=== PATIENT | female | born 1960 | race Caucasian/White ===

== ENCOUNTER 2019-05-09 09:07 | Outpatient (CLI) | payer BC ==
--- NOTE | 2019-05-09 10:52 | BD ---
DEXA BONE DENSITY STUDY: Date: 05/09/19 HISTORY: Postmenopausal screening. FINDINGS/IMPRESSION: Lumbar Spine: BMD (g/cm2) L1 0.925 T-Score: -0.6 L2 1.008 T-Score: -0.2 L3 1.021 T-Score: -0.6 L4 0.944 T-Score: -1.1 L1-L4 0.975 T-Score: -0.7 Within normal limits with no increased risk for fracture. Left Hip: Femoral Neck: 0.726 T-Score: -1.1 Total Femur: 0.971 T-Score: +0.2 Evidence for osteopenia with increased risk for fracture. POS: [facility]
--- NOTE | 2019-05-09 15:28 | MMO ---
Bilateral MAMMO Bilat Screen [facility]. CLINICAL HISTORY: Patient is 59 years old and is seen for screening. The patient has the following family history of breast cancer: maternal grandmother. The patient has no personal history of cancer. The patient has a history of left Excisional Biopsy in December, - Fibroadenoma. VIEWS: The views performed were: bilateral craniocaudal with tomosynthesis and bilateral mediolateral oblique with tomosynthesis. FILMS COMPARED: The present examination has been compared to prior imaging studies performed at [facility] on 09/18/2004, 01/25/2007, 10/09/2008 and 05/14/2013. MAMMOGRAM FINDINGS: There are scattered fibroglandular densities. There are no suspicious masses, suspicious calcifications, or new areas of architectural distortion. IMPRESSION: THERE IS NO MAMMOGRAPHIC EVIDENCE OF MALIGNANCY. A ROUTINE FOLLOW-UP MAMMOGRAM IN 1 YEAR IS RECOMMENDED. THE RESULTS OF THIS EXAM WERE SENT TO THE PATIENT. ACR BI-RADS Category 1 - Negative MAMMOGRAPHY NOTE: 1. A negative mammogram report should not delay a biopsy if a dominant of clinically suspicious mass is present. 2. Approximately 10% to 15% of breast cancers are not detected by mammography. 3. Adenosis and dense breasts may obscure an underlying neoplasm. Reported by: ROSELINE PALOMARES MD Electonically Signed: [id number]
== END 2019-05-09 09:08 | disposition home or self-care (01) ==
LOC: BICMAMMO 09:07
PROVIDERS: ATTEND Family Medicine
DX: Z12.31 Encounter for screening mammogram for malignant neoplasm of breast (principal); Z78.0 Asymptomatic menopausal state; Z80.3 Family history of malignant neoplasm of breast; M85.859 Other specified disorders of bone density and structure, unspecified thigh
CPT/HCPCS: 77063; 77067; 77080

== ENCOUNTER 2021-04-21 09:29 | Outpatient (CLI) | payer BC | END 2021-04-21 09:30 | disposition home or self-care (01) | LOC: BICMAMMO 09:29 | PROVIDERS: ATTEND Physician Assistant | DX: Z12.31 Encounter for screening mammogram for malignant neoplasm of breast (principal); Z80.3 Family history of malignant neoplasm of breast | CPT/HCPCS: 77063; 77067 ==

== ENCOUNTER 2021-07-23 22:53 | Inpatient (IN) | payer BC ==
[2021-07-23 23:44] LABS: #Lymphocytes 1.6 thou/uL (1.20-3.40); #Monocytes 0.4 thou/uL (0.11-0.59); #Neutrophils 4.8 thou/uL (1.40-6.50); %Eosinophils 0.2 % (0.0-10.0); %Lymphocytes 23.7 % (21.0-51.0); %Monocytes 5.2 % (0.0-10.0); %Neutrophils 70.9 % (42.0-75.0); Hemoglobin 13.8 g/dL (12.0-16.0); Mean Corpuscular HGB CONC 32.1 g/dL (32.0-36.0); Mean Corpuscular Hemoglobin 31.4 pg (27.0-31.0); Mean Corpuscular Volume 97.8 fL (78.0-98.0); Mean Platelet Volume 9.5 fL (7.4-10.4); Platelet Count 188 thou/uL (130-400); Red Blood Cell (RBC) Count 4.41 mill/uL (4.20-5.40); White Blood Cell (WBC) Count 6.8 thou/uL (4.8-10.8)
[2021-07-24 00:05] LABS: ALT (SGPT) 63 U/L (8-55); AST (SGOT) 85 U/L (5-34); Albumin 3.3 g/dL (3.4-4.8); Alkaline Phosphatase 70 U/L (40-110); Anion Gap 17 mmol/L (10-20); BUN (Urea Nitrogen) 17 mg/dL (9.8-20.1); Bilirubin, Total 0.7 mg/dL (0.2-1.2); Calc. Creatinine Clearance 0 mL/min (70-130); Carbon Dioxide 22 mmol/L (23-31); Chloride 100 mmol/L (98-107); Globulin 2.9 g/dL (2.4-3.5); Glucose 131 mg/dL (80-115); Potassium 3.1 mmol/L (3.5-5.1); Protein, Total 6.2 g/dL (5.8-8.1); Sodium 136 mmol/L (136-145)
[2021-07-24] MEDS ORDERED: Dexamethasone 10 MG/ML VIAL ONE (02:03)
[2021-07-24] MEDS ORDERED: HYDROcodone/Acetaminophen 7.5/325 mg Tablet PO PRN (02:10)
[2021-07-24] MEDS ORDERED: Senokot S 8.6-50 MG TAB PO PRN (02:10)
[2021-07-24] MEDS ORDERED: Guaifenesin DM 100-10/5 ML UDCUP PO PRN (02:10)
[2021-07-24] MEDS ORDERED: Ondansetron PF 4 MG/2 ML Vial IVP PRN (02:10)
[2021-07-24] MEDS ORDERED: HYDROcodone/Acetaminophen 5/325 mg Tablet PO PRN (02:10)
[2021-07-24] MEDS ORDERED: Pharmacy to Dose REMDESIVIR IVPB PRN (02:14)
[2021-07-24] MEDS ORDERED: Melatonin 3 MG TAB PO PRN (02:15)
[2021-07-24] MEDS ORDERED: Enoxaparin Sodium 40 MG/0.4 ML SYRINGE SC SCH (02:15)
[2021-07-24] MEDS ORDERED: Benzonatate 100 MG CAP PO PRN (02:18)
[2021-07-24] MEDS ORDERED: Albuterol Sulfate 1.25 MG/3 ML NEB INH PRN (02:18)
[2021-07-24] MEDS ORDERED: Potassium Chloride 20 MEQ TAB PO SCH (03:45)
[2021-07-24 03:48] VITALS: BMI 38.9
[2021-07-24] MEDS: Acetaminophen 325 MG TAB PO PRN (05:16)
[2021-07-24 07:15] LABS: #Lymphocytes 1.3 thou/uL (1.20-3.40); #Monocytes 0.3 thou/uL (0.11-0.59); #Neutrophils 4.6 thou/uL (1.40-6.50); %Basophils 0.2 % (0.0-1.0); %Eosinophils 0.4 % (0.0-10.0); %Monocytes 4.1 % (0.0-10.0); %Neutrophils 74.3 % (42.0-75.0); Mean Corpuscular HGB CONC 32.1 g/dL (32.0-36.0); Mean Corpuscular Hemoglobin 31.5 pg (27.0-31.0); Mean Platelet Volume 9.9 fL (7.4-10.4); Platelet Count 198 thou/uL (130-400); RBC Distribution Width 12.2 % (11.5-14.5); Red Blood Cell (RBC) Count 4.44 mill/uL (4.20-5.40); White Blood Cell (WBC) Count 6.2 thou/uL (4.8-10.8)
[2021-07-24 07:39] LABS: Hemoglobin A1c 5.3 % (4.0-6.0)
[2021-07-24] MEDS: Zinc Sulfate 220 MG CAP PO SCH (07:54)
[2021-07-24] MEDS: Cholecalciferol (Vitamin D3) 400 UNITS TAB PO SCH (07:54)
[2021-07-24] MEDS: Dexamethasone 10 MG/ML VIAL SLOW IVP SCH ×2 (07:54→21:16)
[2021-07-24] MEDS: Famotidine 20 MG TAB PO SCH ×2 (07:54→21:16)
[2021-07-24] MEDS: Ascorbic Acid 500 mg Chewable Tablet PO SCH (07:54)
[2021-07-24] MEDS: Triamcinolone 0.1% Cream 15 GM TUBE TOP SCH ×2 (08:02→21:17)
[2021-07-24 08:50] LABS: ALT (SGPT) 67 U/L (8-55); AST (SGOT) 85 U/L (5-34); Albumin 3.4 g/dL (3.4-4.8); Alkaline Phosphatase 67 U/L (40-110); Anion Gap 13 mmol/L (10-20); BUN (Urea Nitrogen) 15 mg/dL (9.8-20.1); Bilirubin, Total 0.7 mg/dL (0.2-1.2); Calc. Creatinine Clearance 127 mL/min (70-130); Calcium 8.5 mg/dL (7.8-10.44); Carbon Dioxide 29 mmol/L (23-31); Chloride 99 mmol/L (98-107); Glucose 141 mg/dL (80-115); Potassium 4.7 mmol/L (3.5-5.1); Protein, Total 6.4 g/dL (5.8-8.1); Sodium 136 mmol/L (136-145)
[2021-07-24] MEDS ORDERED: REMDESIVIR 200 MG in Sodium Chloride 0.9% 250 ML 210 ML IV SCH (09:00)
[2021-07-24] MEDS ORDERED: Iopamidol-370 76% 500 ML 1 ML ONE (10:39)
[2021-07-24] MEDS: Enoxaparin Sodium 40 MG/0.4 ML SYRINGE SC SCH (21:16)
[2021-07-25] MEDS: Dexamethasone 10 MG/ML VIAL SLOW IVP SCH ×2 (08:30→20:57)
[2021-07-25] MEDS: Triamcinolone 0.1% Cream 15 GM TUBE TOP SCH ×2 (08:30→20:58)
[2021-07-25] MEDS: Cholecalciferol (Vitamin D3) 400 UNITS TAB PO SCH (08:30)
[2021-07-25] MEDS: Famotidine 20 MG TAB PO SCH ×2 (08:30→20:57)
[2021-07-25] MEDS: Zinc Sulfate 220 MG CAP PO SCH (08:30)
[2021-07-25] MEDS: Ascorbic Acid 500 mg Chewable Tablet PO SCH (08:30)
[2021-07-25] MEDS: REMDESIVIR 100 MG in Sodium Chloride 0.9% 250 ML 230 ML IV SCH (08:37)
[2021-07-25] MEDS: Acetaminophen 325 MG TAB PO PRN ×2 (10:32→20:58)
[2021-07-25 11:14] LABS: #Lymphocytes 1.3 thou/uL (1.20-3.40); #Monocytes 0.6 thou/uL (0.11-0.59); #Neutrophils 7.8 thou/uL (1.40-6.50); %Basophils 0.1 % (0.0-1.0); %Lymphocytes 13.4 % (21.0-51.0); %Monocytes 5.8 % (0.0-10.0); %Neutrophils 80.6 % (42.0-75.0); Hemoglobin 13.8 g/dL (12.0-16.0); Mean Corpuscular HGB CONC 33.7 g/dL (32.0-36.0); Mean Corpuscular Hemoglobin 32.8 pg (27.0-31.0); Mean Corpuscular Volume 97.5 fL (78.0-98.0); Mean Platelet Volume 9.4 fL (7.4-10.4); Platelet Count 246 thou/uL (130-400); RBC Distribution Width 11.9 % (11.5-14.5); White Blood Cell (WBC) Count 9.6 thou/uL (4.8-10.8)
[2021-07-25 11:37] LABS: ALT (SGPT) 63 U/L (8-55); AST (SGOT) 60 U/L (5-34); Albumin 3.2 g/dL (3.4-4.8); Alkaline Phosphatase 65 U/L (40-110); Anion Gap 14 mmol/L (10-20); BUN (Urea Nitrogen) 17 mg/dL (9.8-20.1); Bilirubin, Total 0.5 mg/dL (0.2-1.2); CRP (Inflammatory) 4.55 mg/dL (= or < 0.5); Calc. Creatinine Clearance 135 mL/min (70-130); Calcium 8.4 mg/dL (7.8-10.44); Carbon Dioxide 25 mmol/L (23-31); Chloride 101 mmol/L (98-107); Globulin 2.8 g/dL (2.4-3.5); Glucose 156 mg/dL (80-115); Potassium 3.5 mmol/L (3.5-5.1); Sodium 136 mmol/L (136-145)
[2021-07-25] MEDS: Enoxaparin Sodium 40 MG/0.4 ML SYRINGE SC SCH (20:57)
[2021-07-26 07:27] LABS: #Lymphocytes 1.4 thou/uL (1.20-3.40); #Monocytes 0.5 thou/uL (0.11-0.59); #Neutrophils 8.7 thou/uL (1.40-6.50); %Basophils 0.2 % (0.0-1.0); %Eosinophils 0.1 % (0.0-10.0); %Lymphocytes 13.1 % (21.0-51.0); %Monocytes 4.3 % (0.0-10.0); %Neutrophils 82.3 % (42.0-75.0); Hemoglobin 13.2 g/dL (12.0-16.0); Mean Corpuscular HGB CONC 31.6 g/dL (32.0-36.0); Mean Corpuscular Hemoglobin 31.4 pg (27.0-31.0); Mean Corpuscular Volume 99.3 fL (78.0-98.0); Mean Platelet Volume 9.8 fL (7.4-10.4); Platelet Count 276 thou/uL (130-400); RBC Distribution Width 11.9 % (11.5-14.5); Red Blood Cell (RBC) Count 4.21 mill/uL (4.20-5.40); White Blood Cell (WBC) Count 10.5 thou/uL (4.8-10.8)
[2021-07-26 07:39] LABS: ALT (SGPT) 63 U/L (8-55); AST (SGOT) 63 U/L (5-34); Albumin 2.9 g/dL (3.4-4.8); Alkaline Phosphatase 66 U/L (40-110); Anion Gap 13 mmol/L (10-20); BUN (Urea Nitrogen) 21 mg/dL (9.8-20.1); Bilirubin, Total 0.5 mg/dL (0.2-1.2); CRP (Inflammatory) 2.38 mg/dL (= or < 0.5); Calc. Creatinine Clearance 133 mL/min (70-130); Calcium 8.1 mg/dL (7.8-10.44); Carbon Dioxide 27 mmol/L (23-31); Chloride 103 mmol/L (98-107); Globulin 3.3 g/dL (2.4-3.5); Glucose 134 mg/dL (80-115); Potassium 4.6 mmol/L (3.5-5.1); Protein, Total 6.2 g/dL (5.8-8.1); Sodium 138 mmol/L (136-145)
[2021-07-26] MEDS: Dexamethasone 10 MG/ML VIAL SLOW IVP SCH ×2 (08:38→21:22)
[2021-07-26] MEDS: REMDESIVIR 100 MG in Sodium Chloride 0.9% 250 ML 230 ML IV SCH (08:38)
[2021-07-26] MEDS: Cholecalciferol (Vitamin D3) 400 UNITS TAB PO SCH (08:38)
[2021-07-26] MEDS: Ascorbic Acid 500 mg Chewable Tablet PO SCH (08:38)
[2021-07-26] MEDS: Zinc Sulfate 220 MG CAP PO SCH (08:38)
[2021-07-26] MEDS: Famotidine 20 MG TAB PO SCH ×2 (08:38→21:22)
[2021-07-26] MEDS: Triamcinolone 0.1% Cream 15 GM TUBE TOP SCH ×2 (08:39→21:22)
[2021-07-26] MEDS: Acetaminophen 325 MG TAB PO PRN ×2 (08:52→21:24)
[2021-07-26] MEDS: Enoxaparin Sodium 40 MG/0.4 ML SYRINGE SC SCH (21:22)
[2021-07-27 06:54] LABS: #Lymphocytes 1.5 thou/uL (1.20-3.40); #Monocytes 0.6 thou/uL (0.11-0.59); %Basophils 0.2 % (0.0-1.0); %Eosinophils 0.1 % (0.0-10.0); %Lymphocytes 12.6 % (21.0-51.0); %Neutrophils 82.1 % (42.0-75.0); Hemoglobin 13.8 g/dL (12.0-16.0); Mean Corpuscular HGB CONC 34.3 g/dL (32.0-36.0); Mean Corpuscular Hemoglobin 33.5 pg (27.0-31.0); Mean Corpuscular Volume 97.6 fL (78.0-98.0); Mean Platelet Volume 9.4 fL (7.4-10.4); Platelet Count 302 thou/uL (130-400); RBC Distribution Width 11.8 % (11.5-14.5); Red Blood Cell (RBC) Count 4.11 mill/uL (4.20-5.40); White Blood Cell (WBC) Count 12.2 thou/uL (4.8-10.8)
[2021-07-27 07:16] LABS: ALT (SGPT) 71 U/L (8-55); AST (SGOT) 56 U/L (5-34); Albumin 3.1 g/dL (3.4-4.8); Alkaline Phosphatase 70 U/L (40-110); Anion Gap 10 mmol/L (10-20); BUN (Urea Nitrogen) 20 mg/dL (9.8-20.1); Bilirubin, Total 0.7 mg/dL (0.2-1.2); CRP (Inflammatory) 1.37 mg/dL (= or < 0.5); Calc. Creatinine Clearance 141 mL/min (70-130); Calcium 8.4 mg/dL (7.8-10.44); Carbon Dioxide 27 mmol/L (23-31); Chloride 104 mmol/L (98-107); Globulin 2.6 g/dL (2.4-3.5); Glucose 141 mg/dL (80-115); Potassium 3.8 mmol/L (3.5-5.1); Protein, Total 5.7 g/dL (5.8-8.1); Sodium 137 mmol/L (136-145)
[2021-07-27] MEDS ORDERED: Dexamethasone 4 MG TAB PO SCH (08:15)
[2021-07-27] MEDS: Cholecalciferol (Vitamin D3) 400 UNITS TAB PO SCH (08:58)
[2021-07-27] MEDS: Famotidine 20 MG TAB PO SCH ×2 (08:58→20:29)
[2021-07-27] MEDS: REMDESIVIR 100 MG in Sodium Chloride 0.9% 250 ML 230 ML IV SCH (08:59)
[2021-07-27] MEDS: Ascorbic Acid 500 mg Chewable Tablet PO SCH (08:59)
[2021-07-27] MEDS: Acetaminophen 325 MG TAB PO PRN ×2 (09:11→20:29)
[2021-07-27] MEDS: Zinc Sulfate 220 MG CAP PO SCH (09:14)
[2021-07-27] MEDS: Triamcinolone 0.1% Cream 15 GM TUBE TOP SCH ×2 (09:15→20:29)
[2021-07-27] MEDS: Dexamethasone 4 MG TAB PO SCH (18:26)
[2021-07-27] MEDS: Enoxaparin Sodium 40 MG/0.4 ML SYRINGE SC SCH (20:29)
[2021-07-28 08:25] VITALS: BP 159/80; TEMP 98
[2021-07-28] MEDS: Dexamethasone 4 MG TAB PO SCH (08:49)
[2021-07-28] MEDS: Zinc Sulfate 220 MG CAP PO SCH (08:49)
[2021-07-28] MEDS: Ascorbic Acid 500 mg Chewable Tablet PO SCH (08:49)
[2021-07-28] MEDS: Cholecalciferol (Vitamin D3) 400 UNITS TAB PO SCH (08:49)
[2021-07-28] MEDS: Famotidine 20 MG TAB PO SCH (08:49)
[2021-07-28] MEDS: Triamcinolone 0.1% Cream 15 GM TUBE TOP SCH (08:53)
[2021-07-28] MEDS: REMDESIVIR 100 MG in Sodium Chloride 0.9% 250 ML 230 ML IV SCH (09:33)
[2021-07-28] MEDS: Acetaminophen 325 MG TAB PO PRN (09:35)
== END 2021-07-28 14:10 | disposition home or self-care (01) | DRG 177 ==
LOC: ERS 22:53 → T4-A 07-24 00:47
PROVIDERS: ADMIT Internal Medicine; ATTEND Internal Medicine
PROC: XW033E5 Introduction of Remdesivir Anti-infective into Peripheral Vein, Percutaneous Approach, New Technology Group 5 (ICD-10-PCS; principal; 2021-07-24)
PROC: 3E0333Z Introduction of Anti-inflammatory into Peripheral Vein, Percutaneous Approach (ICD-10-PCS; 2021-07-24)
PROC: 8E0ZXY6 Isolation (ICD-10-PCS; 2021-07-24)
DX: U07.1 COVID-19 (principal); J12.82 Pneumonia due to coronavirus disease 2019; J96.01 Acute respiratory failure with hypoxia; A08.39 Other viral enteritis; K21.9 Gastro-esophageal reflux disease without esophagitis; E87.6 Hypokalemia; R74.01 Elevation of levels of liver transaminase levels; Z90.710 Acquired absence of both cervix and uterus; Z90.49 Acquired absence of other specified parts of digestive tract; Z87.891 Personal history of nicotine dependence; Z88.0 Allergy status to penicillin; Z79.899 Other long term (current) drug therapy
CPT/HCPCS: 36415; 36416; 71045; 71275; 80053; 82728; 83036; 83880; 84484; 85025; 85379; 86140; 93005; 96374; J1100; J1650; J7050; J8540; Q9967

== ENCOUNTER 2021-10-27 13:21 | Inpatient (IN) | payer BC, OTHER, SELFPAY ==
[2021-10-27 13:53] LABS: Actual Bicarbonate (HCO3a) 21.3 mEq/L (22-28); Analyzer IN Cardio ER; Base Excess (BEa) -5.5 mEq/L (-2.0 to +3.0); CO2 Tension 46.1 mmHg (35.0-45.0); Calcium, Ionized (arterial) 1.15 mmol/L (1.12-1.30); Carboxyhemoglobin (COHb) 1.3 gm% (0.0-3.0); Hemoglobin (Hb) 16.1 g/dL (12.0-16.0); O2 Tension (PaO2), arterial 63.5 mmHg (> 80.0); Potassium - ABG Lab 3.11 mmol/L (3.70-5.30); pH, Arterial 7.28 (7.35-7.45)
[2021-10-27 13:56] LABS: ALV-art Gradient 591.875 mmHg (0-20); Puncture Site RRA
[2021-10-27 14:01] LABS: Hemoglobin 16.1 g/dL (12.0-16.0); Mean Corpuscular HGB CONC 32.7 g/dL (32.0-36.0); Mean Corpuscular Hemoglobin 31.9 pg (27.0-31.0); Mean Corpuscular Volume 97.5 fL (78.0-98.0); Mean Platelet Volume 10.2 fL (7.4-10.4); Platelet Count 257 thou/uL (130-400); Red Blood Cell (RBC) Count 5.04 mill/uL (4.20-5.40); White Blood Cell (WBC) Count 13.5 thou/uL (4.8-10.8)
[2021-10-27 14:16] LABS: Band 43 % (5-11); Dohle Bodies SLIGHT; Lymphocytes 8 % (21-51); MDiff Complete? YES; Metamyelocyte 6 % (0-0); Monocytes 3 % (0-10); Neutrophil 39 % (42-75); Platelet Morphology Comment Appears Adequate; RBC Morphology Normal; Reflex for Review?? YES; Toxic Granulation SLIGHT; Vacuoles SLIGHT
[2021-10-27 14:26] LABS: ALT (SGPT) 22 U/L (8-55); AST (SGOT) 68 U/L (5-34); Albumin 3.3 g/dL (3.4-4.8); Alkaline Phosphatase 69 U/L (40-110); Anion Gap 21 mmol/L (10-20); BUN (Urea Nitrogen) 56 mg/dL (9.8-20.1); Bilirubin, Total 1.3 mg/dL (0.2-1.2); Calc. Creatinine Clearance 0 mL/min (70-130); Calcium 9.8 mg/dL (7.8-10.44); Carbon Dioxide 20 mmol/L (23-31); Chloride 95 mmol/L (98-107); Globulin 3.8 g/dL (2.4-3.5); Glucose 97 mg/dL (80-115); Lipase 5 U/L (8-78); Potassium 3.1 mmol/L (3.5-5.1); Protein, Total 7.1 g/dL (5.8-8.1); Sodium 133 mmol/L (136-145)
[2021-10-27 14:48] LABS: CKMB 1.3 ng/mL (0-6.6)
[2021-10-27 15:13] LABS: SARS-CoV-2 NAA Rapid Test Not Detected (NotDetected)
[2021-10-27] MEDS ORDERED: Potassium Chloride 20 MEQ TAB ONE (15:13)
[2021-10-27] MEDS ORDERED: Magnesium 2 GM/50 ML BAG (IN WATER) ONE (15:13)
[2021-10-27] MEDS ORDERED: Piperacillin/Tazobactam 3.375 GM VIAL ONE (15:13)
[2021-10-27] MEDS ORDERED: Vancomycin 1 GM/200 ML BAG ONE (15:13)
[2021-10-27] MEDS ORDERED: Aspirin Chewable 81 MG TAB ONE (15:35)
[2021-10-27] MEDS ORDERED: Acetaminophen 650 MG Suppository PR PRN (16:20)
[2021-10-27] MEDS ORDERED: Ondansetron PF 4 MG/2 ML Vial IVP PRN (16:20)
[2021-10-27] MEDS ORDERED: Acetaminophen 325 MG TAB PO PRN (16:20)
[2021-10-27] MEDS ORDERED: Lactated Ringer's 1,000 ML IV SCH (16:30)
[2021-10-27 17:15] LABS: Lactic Acid 2.7 mmol/L (0.5-2.2)
[2021-10-27] MEDS: Dexamethasone 10 MG/ML VIAL SLOW IVP SCH (20:28)
[2021-10-27] MEDS: Famotidine/PF 20 mg/2ml Vial SLOW IVP SCH (20:28)
[2021-10-27] MEDS: cefTRIAXone\\ROCEPHIN 2 GM in Sodium Chloride 0.9% 100 ML IVPB SCH (20:29)
[2021-10-27] MEDS ORDERED: Dexamethasone 10 MG in Sodium Chloride 0.9% 50 ML IVPB SCH (21:00)
[2021-10-27] MEDS ORDERED: Heparin 5,000 UNITS/ML VIAL SC SCH (21:00)
[2021-10-28 04:13] LABS: Anion Gap 17 mmol/L (10-20); BUN (Urea Nitrogen) 62 mg/dL (9.8-20.1); Calc. Creatinine Clearance 32 mL/min (70-130); Calcium 8.9 mg/dL (7.8-10.44); Carbon Dioxide 20 mmol/L (23-31); Chloride 101 mmol/L (98-107); Glucose 98 mg/dL (80-115); Potassium 3.9 mmol/L (3.5-5.1); Sodium 134 mmol/L (136-145)
[2021-10-28 04:16] LABS: Band 77 % (5-11); Hemoglobin 14.3 g/dL (12.0-16.0); Lymphocytes 9 % (21-51); MDiff Complete? YES; Mean Corpuscular HGB CONC 35.2 g/dL (32.0-36.0); Mean Corpuscular Hemoglobin 34.5 pg (27.0-31.0); Mean Platelet Volume 10.1 fL (7.4-10.4); Monocytes 2 % (0-10); Myelocyte 3 % (0-0); Neutrophil 9 % (42-75); Platelet Count 183 thou/uL (130-400); Platelet Morphology Comment Appears Adequate; RBC Distribution Width 12.1 % (11.5-14.5); RBC Morphology Normal; Red Blood Cell (RBC) Count 4.16 mill/uL (4.20-5.40); Vacuoles SLIGHT; White Blood Cell (WBC) Count 11.5 thou/uL (4.8-10.8)
[2021-10-28 05:05] LABS: SARS-CoV-2 NAA Rapid Test DETECTED (NotDetected)
[2021-10-28] MEDS: Azithromycin 500 MG in Sodium Chloride 0.9% 250 ML 250 ML IVPB SCH (05:07)
[2021-10-28] MEDS ORDERED: Diltiazem HCl 125 MG, Admixture Fee 1 EACH in Sodium Chloride 0.9% 100 ML IVPB SCH (06:45)
[2021-10-28] MEDS: Dexamethasone 10 MG/ML VIAL SLOW IVP SCH ×2 (08:22→21:06)
[2021-10-28] MEDS: Enoxaparin Sodium 100 MG/ML SYRINGE SC SCH (08:23)
[2021-10-28] MEDS ORDERED: Metoprolol Tartrate 5 MG/5 ML VIAL IVP SCH (08:45)
[2021-10-28] MEDS ORDERED: Vancomycin HCl 1 GM in Sodium Chloride 0.9% 250 ML 250 ML IVPB SCH (09:00)
[2021-10-28] MEDS: Amiodarone 450 MG in Dextrose 5% in Water 250 ML IVPB SCH ×2 (09:17→16:10)
[2021-10-28 09:19] LABS: Vancomycin, Random 10.3 ug/mL (See Comment)
[2021-10-28 09:20] LABS: Magnesium 2.8 mg/dL (1.6-2.6)
[2021-10-28] MEDS ORDERED: Pharmacy to Dose BARICITINIB IVPB PRN (12:09)
[2021-10-28] MEDS ORDERED: BARICITINIB 1 MG TAB PO SCH (12:30)
[2021-10-28 15:50] LABS: Vancomycin, Random 8.9 ug/mL (See Comment)
[2021-10-28] MEDS ORDERED: Vancomycin HCl 750 MG in Sodium Chloride 0.9% 250 ML 250 ML IVPB SCH (17:00)
[2021-10-28] MEDS: cefTRIAXone\\ROCEPHIN 2 GM in Sodium Chloride 0.9% 100 ML IVPB SCH (21:06)
[2021-10-28] MEDS: Famotidine/PF 20 mg/2ml Vial SLOW IVP SCH (21:06)
[2021-10-29] MEDS: Azithromycin 500 MG in Sodium Chloride 0.9% 250 ML 250 ML IVPB SCH (06:07)
[2021-10-29] MEDS: Amiodarone 450 MG in Dextrose 5% in Water 250 ML IVPB SCH ×2 (06:07→16:08)
[2021-10-29 07:53] LABS: Hemoglobin 12.8 g/dL (12.0-16.0); Mean Corpuscular HGB CONC 33.4 g/dL (32.0-36.0); Mean Corpuscular Hemoglobin 33.1 pg (27.0-31.0); Mean Platelet Volume 10.1 fL (7.4-10.4); Platelet Count 216 thou/uL (130-400); RBC Distribution Width 12.4 % (11.5-14.5); Red Blood Cell (RBC) Count 3.87 mill/uL (4.20-5.40); White Blood Cell (WBC) Count 16.8 thou/uL (4.8-10.8)
[2021-10-29 08:08] LABS: Anion Gap 14 mmol/L (10-20); BUN (Urea Nitrogen) 75 mg/dL (9.8-20.1); Calc. Creatinine Clearance 36 mL/min (70-130); Carbon Dioxide 25 mmol/L (23-31); Chloride 101 mmol/L (98-107); Glucose 114 mg/dL (80-115); Potassium 3.7 mmol/L (3.5-5.1); Sodium 136 mmol/L (136-145)
[2021-10-29 08:11] LABS: Band 39 % (5-11); Lymphocytes 4 % (21-51); MDiff Complete? YES; Metamyelocyte 1 % (0-0); Neutrophil 56 % (42-75); Platelet Morphology Comment Appears Adequate; Polychromasia SLIGHT = 2-3 cells (100X) (0-2/hpf); Toxic Granulation SLIGHT; Vacuoles MARKED
[2021-10-29] MEDS: Dexamethasone 10 MG/ML VIAL SLOW IVP SCH ×2 (08:24→20:15)
[2021-10-29] MEDS: Enoxaparin Sodium 100 MG/ML SYRINGE SC SCH (08:25)
[2021-10-29] MEDS ORDERED: BARICITINIB 1 MG TAB PO SCH (09:00)
[2021-10-29] MEDS ORDERED: Vancomycin HCl 750 MG in Sodium Chloride 0.9% 250 ML 250 ML IVPB SCH ×2 (11:00→16:45)
[2021-10-29 15:14] LABS: Vancomycin, Random 12.4 ug/mL (See Comment)
[2021-10-29] MEDS: Albuterol 200 PUFF (6.7GM INHALER) INH SCH (19:38)
[2021-10-29] MEDS: Famotidine/PF 20 mg/2ml Vial SLOW IVP SCH (20:15)
[2021-10-29] MEDS: cefTRIAXone\\ROCEPHIN 2 GM in Sodium Chloride 0.9% 100 ML IVPB SCH (20:25)
[2021-10-29] MEDS: Benzonatate 100 MG CAP PO PRN (22:01)
[2021-10-30] MEDS: Albuterol 200 PUFF (6.7GM INHALER) INH SCH ×4 (00:08→20:02)
[2021-10-30 08:36] LABS: Anion Gap 13 mmol/L (10-20); BUN (Urea Nitrogen) 74 mg/dL (9.8-20.1); Calc. Creatinine Clearance 46 mL/min (70-130); Calcium 9.7 mg/dL (7.8-10.44); Carbon Dioxide 24 mmol/L (23-31); Chloride 106 mmol/L (98-107); Glucose 123 mg/dL (80-115); Potassium 3.6 mmol/L (3.5-5.1); Sodium 139 mmol/L (136-145)
[2021-10-30 08:40] LABS: Band 18 % (5-11); Hemoglobin 13.9 g/dL (12.0-16.0); Lymphocytes 7 % (21-51); MDiff Complete? YES; Mean Corpuscular HGB CONC 33.9 g/dL (32.0-36.0); Mean Corpuscular Volume 97.4 fL (78.0-98.0); Mean Platelet Volume 10.1 fL (7.4-10.4); Neutrophil 75 % (42-75); Platelet Count 230 thou/uL (130-400); RBC Distribution Width 12.5 % (11.5-14.5); Red Blood Cell (RBC) Count 4.22 mill/uL (4.20-5.40); Toxic Granulation SLIGHT; White Blood Cell (WBC) Count 25.5 thou/uL (4.8-10.8)
[2021-10-30] MEDS: Dexamethasone 10 MG/ML VIAL SLOW IVP SCH ×2 (09:25→20:01)
[2021-10-30] MEDS: Enoxaparin Sodium 100 MG/ML SYRINGE SC SCH (09:25)
[2021-10-30] MEDS: Amiodarone 450 MG in Dextrose 5% in Water 250 ML IVPB SCH (11:55)
[2021-10-30] MEDS ORDERED: Amiodarone 200 MG TAB PO SCH (14:15)
[2021-10-30] MEDS ORDERED: Enoxaparin Sodium 100 MG/ML SYRINGE SC SCH (16:37)
[2021-10-30] MEDS ORDERED: Enoxaparin Sodium 60 MG/0.6 ML SYRINGE SC SCH (18:45)
[2021-10-30] MEDS: Amiodarone 200 MG TAB PO SCH (20:01)
[2021-10-30] MEDS: Famotidine/PF 20 mg/2ml Vial SLOW IVP SCH (20:01)
[2021-10-30] MEDS: cefTRIAXone\\ROCEPHIN 2 GM in Sodium Chloride 0.9% 100 ML IVPB SCH (20:02)
[2021-10-30] MEDS: Benzonatate 100 MG CAP PO PRN (20:02)
[2021-10-31] MEDS: Albuterol 200 PUFF (6.7GM INHALER) INH SCH ×4 (01:34→22:36)
[2021-10-31 04:06] LABS: Magnesium 2.7 mg/dL (1.6-2.6)
[2021-10-31] MEDS: Enoxaparin Sodium 60 MG/0.6 ML SYRINGE SC SCH (08:03)
[2021-10-31] MEDS: Dexamethasone 10 MG/ML VIAL SLOW IVP SCH ×2 (08:03→22:35)
[2021-10-31] MEDS: Amiodarone 200 MG TAB PO SCH ×2 (08:03→22:35)
[2021-10-31] MEDS: Benzonatate 100 MG CAP PO PRN (08:46)
[2021-10-31] MEDS ORDERED: Lorazepam 2 MG/ML VIAL SLOW IVP PRN (09:50)
[2021-10-31] MEDS ORDERED: Lorazepam 0.5 MG TAB PO PRN (09:50)
[2021-10-31 10:18] LABS: Anion Gap 17 mmol/L (10-20); BUN (Urea Nitrogen) 70 mg/dL (9.8-20.1); Calc. Creatinine Clearance 54 mL/min (70-130); Carbon Dioxide 19 mmol/L (23-31); Chloride 107 mmol/L (98-107); Glucose 110 mg/dL (80-115); Potassium 3.6 mmol/L (3.5-5.1); Sodium 139 mmol/L (136-145)
[2021-10-31 11:02] LABS: Band 7 % (5-11); Hemoglobin 15.4 g/dL (12.0-16.0); Lymphocytes 10 % (21-51); MDiff Complete? YES; Mean Corpuscular HGB CONC 32.9 g/dL (32.0-36.0); Mean Corpuscular Hemoglobin 31.7 pg (27.0-31.0); Mean Corpuscular Volume 96.2 fL (78.0-98.0); Mean Platelet Volume 9.9 fL (7.4-10.4); Neutrophil 83 % (42-75); Platelet Count 207 thou/uL (130-400); RBC Distribution Width 12.6 % (11.5-14.5); Red Blood Cell (RBC) Count 4.86 mill/uL (4.20-5.40); White Blood Cell (WBC) Count 30.8 thou/uL (4.8-10.8)
[2021-10-31] MEDS ORDERED: Labetalol HCl 100 MG/20 ML VIAL SLOW IVP PRN (17:24)
[2021-10-31] MEDS ORDERED: hydrALAZINE 25 MG TAB PO PRN (17:24)
[2021-10-31] MEDS: cefTRIAXone\\ROCEPHIN 2 GM in Sodium Chloride 0.9% 100 ML IVPB SCH (22:35)
[2021-10-31] MEDS: Famotidine/PF 20 mg/2ml Vial SLOW IVP SCH (22:35)
[2021-11-01] MEDS: Albuterol 200 PUFF (6.7GM INHALER) INH SCH ×4 (01:54→19:54)
[2021-11-01] MEDS: Amiodarone 200 MG TAB PO SCH ×2 (07:56→20:13)
[2021-11-01] MEDS: Enoxaparin Sodium 60 MG/0.6 ML SYRINGE SC SCH (07:56)
[2021-11-01] MEDS: Zinc Sulfate 220 MG CAP PO SCH (07:56)
[2021-11-01] MEDS: Dexamethasone 10 MG/ML VIAL SLOW IVP SCH ×2 (07:57→20:14)
[2021-11-01] MEDS: Saccharomyces boulardii 250 MG CAP PO SCH (07:57)
[2021-11-01] MEDS: Ascorbic Acid 500 mg Chewable Tablet PO SCH (07:57)
[2021-11-01 08:04] LABS: Anion Gap 11 mmol/L (10-20); BUN (Urea Nitrogen) 62 mg/dL (9.8-20.1); Calc. Creatinine Clearance 63 mL/min (70-130); Calcium 9.4 mg/dL (7.8-10.44); Carbon Dioxide 22 mmol/L (23-31); Chloride 111 mmol/L (98-107); Glucose 119 mg/dL (80-115); Sodium 140 mmol/L (136-145)
[2021-11-01] MEDS ORDERED: Labetalol HCl 100 MG/20 ML VIAL SLOW IVP PRN (08:43)
[2021-11-01] MEDS ORDERED: Amlodipine 5 MG TAB PO SCH (10:00)
[2021-11-01] MEDS: Cholecalciferol (Vitamin D3) 400 UNITS TAB PO SCH (10:28)
[2021-11-01 11:38] LABS: Band 8 % (5-11); Hemoglobin 13.9 g/dL (12.0-16.0); Lymphocytes 8 % (21-51); MDiff Complete? YES; Mean Corpuscular HGB CONC 33.4 g/dL (32.0-36.0); Mean Corpuscular Hemoglobin 32.4 pg (27.0-31.0); Mean Corpuscular Volume 96.9 fL (78.0-98.0); Mean Platelet Volume 9.6 fL (7.4-10.4); Metamyelocyte 1 % (0-0); Neutrophil 83 % (42-75); Platelet Count 274 thou/uL (130-400); RBC Distribution Width 12.3 % (11.5-14.5); White Blood Cell (WBC) Count 28.6 thou/uL (4.8-10.8)
[2021-11-01] MEDS: Famotidine/PF 20 mg/2ml Vial SLOW IVP SCH (20:13)
[2021-11-01] MEDS: cefTRIAXone\\ROCEPHIN 2 GM in Sodium Chloride 0.9% 100 ML IVPB SCH (20:14)
[2021-11-02] MEDS: Albuterol 200 PUFF (6.7GM INHALER) INH SCH ×4 (03:08→19:20)
[2021-11-02 03:59] LABS: Anion Gap 12 mmol/L (10-20); BUN (Urea Nitrogen) 55 mg/dL (9.8-20.1); Calc. Creatinine Clearance 67 mL/min (70-130); Calcium 8.9 mg/dL (7.8-10.44); Carbon Dioxide 25 mmol/L (23-31); Chloride 108 mmol/L (98-107); Glucose 131 mg/dL (80-115); Potassium 4.1 mmol/L (3.5-5.1); Sodium 141 mmol/L (136-145)
[2021-11-02 06:23] LABS: Hemoglobin 13.3 g/dL (12.0-16.0); Mean Corpuscular HGB CONC 33.6 g/dL (32.0-36.0); Mean Corpuscular Hemoglobin 32.5 pg (27.0-31.0); Mean Corpuscular Volume 96.7 fL (78.0-98.0); Mean Platelet Volume 9.5 fL (7.4-10.4); Platelet Count 274 thou/uL (130-400); RBC Distribution Width 12.3 % (11.5-14.5); White Blood Cell (WBC) Count 18.6 thou/uL (4.8-10.8)
[2021-11-02 06:37] LABS: Band 10 % (5-11); Lymphocytes 14 % (21-51); MDiff Complete? YES; Monocytes 2 % (0-10); Neutrophil 74 % (42-75); Nucleated RBC 1 % (0)
[2021-11-02] MEDS ORDERED: Loperamide HCl 2 MG CAP PO PRN (07:32)
[2021-11-02] MEDS: Amlodipine 5 MG TAB PO SCH (08:56)
[2021-11-02] MEDS: Amiodarone 200 MG TAB PO SCH ×2 (08:56→20:19)
[2021-11-02] MEDS: Ascorbic Acid 500 mg Chewable Tablet PO SCH (08:56)
[2021-11-02] MEDS: Saccharomyces boulardii 250 MG CAP PO SCH (08:57)
[2021-11-02] MEDS: Enoxaparin Sodium 60 MG/0.6 ML SYRINGE SC SCH (08:57)
[2021-11-02] MEDS: Dexamethasone 10 MG/ML VIAL SLOW IVP SCH (08:57)
[2021-11-02] MEDS: Cholecalciferol (Vitamin D3) 400 UNITS TAB PO SCH (08:57)
[2021-11-02] MEDS: Zinc Sulfate 220 MG CAP PO SCH (08:57)
[2021-11-02] MEDS: Famotidine/PF 20 mg/2ml Vial SLOW IVP SCH (20:16)
[2021-11-02] MEDS: cefTRIAXone\\ROCEPHIN 2 GM in Sodium Chloride 0.9% 100 ML IVPB SCH (20:19)
[2021-11-02] MEDS: Famotidine 20 MG TAB PO SCH (20:19)
[2021-11-03] MEDS: Albuterol 200 PUFF (6.7GM INHALER) INH SCH ×4 (00:32→19:01)
[2021-11-03 03:50] LABS: Band 5 % (5-11); Hemoglobin 13.3 g/dL (12.0-16.0); Lymphocytes 12 % (21-51); MDiff Complete? YES; Mean Corpuscular HGB CONC 34.3 g/dL (32.0-36.0); Mean Corpuscular Hemoglobin 33.2 pg (27.0-31.0); Mean Corpuscular Volume 96.7 fL (78.0-98.0); Mean Platelet Volume 9.2 fL (7.4-10.4); Monocytes 7 % (0-10); Neutrophil 76 % (42-75); Platelet Count 273 thou/uL (130-400); Platelet Morphology Comment Appears Adequate; RBC Distribution Width 12.2 % (11.5-14.5); RBC Morphology Normal; Red Blood Cell (RBC) Count 4.01 mill/uL (4.20-5.40); White Blood Cell (WBC) Count 14.5 thou/uL (4.8-10.8)
[2021-11-03 03:54] LABS: Anion Gap 11 mmol/L (10-20); BUN (Urea Nitrogen) 45 mg/dL (9.8-20.1); Calc. Creatinine Clearance 77 mL/min (70-130); Calcium 8.6 mg/dL (7.8-10.44); Carbon Dioxide 25 mmol/L (23-31); Chloride 108 mmol/L (98-107); Glucose 96 mg/dL (80-115); Potassium 3.8 mmol/L (3.5-5.1); Sodium 140 mmol/L (136-145)
[2021-11-03] MEDS: Amlodipine 5 MG TAB PO SCH (07:40)
[2021-11-03] MEDS: Zinc Sulfate 220 MG CAP PO SCH (07:40)
[2021-11-03] MEDS: Benzonatate 100 MG CAP PO PRN (07:41)
[2021-11-03] MEDS: Saccharomyces boulardii 250 MG CAP PO SCH (07:41)
[2021-11-03] MEDS: Ascorbic Acid 500 mg Chewable Tablet PO SCH (07:41)
[2021-11-03] MEDS: Amiodarone 200 MG TAB PO SCH ×2 (07:41→22:37)
[2021-11-03] MEDS: Enoxaparin Sodium 60 MG/0.6 ML SYRINGE SC SCH (07:41)
[2021-11-03] MEDS: Dexamethasone 10 MG/ML VIAL SLOW IVP SCH (07:41)
[2021-11-03] MEDS: Cholecalciferol (Vitamin D3) 400 UNITS TAB PO SCH (07:41)
[2021-11-03] MEDS: Famotidine 20 MG TAB PO SCH ×2 (07:44→22:37)
[2021-11-03] MEDS: cefTRIAXone\\ROCEPHIN 2 GM in Sodium Chloride 0.9% 100 ML IVPB SCH (22:37)
[2021-11-03] MEDS: Apixaban 5 MG TAB PO SCH (22:37)
[2021-11-04] MEDS: Albuterol 200 PUFF (6.7GM INHALER) INH SCH ×4 (02:34→18:20)
[2021-11-04] MEDS: Amlodipine 5 MG TAB PO SCH (09:05)
[2021-11-04] MEDS: Saccharomyces boulardii 250 MG CAP PO SCH (09:05)
[2021-11-04] MEDS: Ascorbic Acid 500 mg Chewable Tablet PO SCH (09:06)
[2021-11-04] MEDS: Famotidine 20 MG TAB PO SCH ×2 (09:06→22:12)
[2021-11-04] MEDS: Apixaban 5 MG TAB PO SCH ×2 (09:06→22:12)
[2021-11-04] MEDS: Cholecalciferol (Vitamin D3) 400 UNITS TAB PO SCH (09:06)
[2021-11-04] MEDS: Amiodarone 200 MG TAB PO SCH ×2 (09:06→22:12)
[2021-11-04] MEDS: Dexamethasone 10 MG/ML VIAL SLOW IVP SCH (09:06)
[2021-11-04] MEDS: Benzonatate 100 MG CAP PO PRN (09:06)
[2021-11-04] MEDS: Zinc Sulfate 220 MG CAP PO SCH (09:07)
[2021-11-04] MEDS: cefTRIAXone\\ROCEPHIN 2 GM in Sodium Chloride 0.9% 100 ML IVPB SCH (22:13)
[2021-11-05] MEDS: Albuterol 200 PUFF (6.7GM INHALER) INH SCH ×3 (03:03→14:38)
[2021-11-05] MEDS: Amiodarone 200 MG TAB PO SCH (09:50)
[2021-11-05] MEDS: Amlodipine 5 MG TAB PO SCH (09:50)
[2021-11-05] MEDS: Ascorbic Acid 500 mg Chewable Tablet PO SCH (09:50)
[2021-11-05] MEDS: Apixaban 5 MG TAB PO SCH (09:50)
[2021-11-05 09:51] VITALS: BMI 38.5
[2021-11-05] MEDS: Saccharomyces boulardii 250 MG CAP PO SCH (09:51)
[2021-11-05] MEDS: Dexamethasone 10 MG/ML VIAL SLOW IVP SCH (09:51)
[2021-11-05] MEDS: Cholecalciferol (Vitamin D3) 400 UNITS TAB PO SCH (09:51)
[2021-11-05] MEDS: Famotidine 20 MG TAB PO SCH (09:51)
[2021-11-05] MEDS: Zinc Sulfate 220 MG CAP PO SCH (09:51)
[2021-11-05 17:11] VITALS: BP 126/66; TEMP 97.8
== END 2021-11-05 17:55 | disposition home or self-care (01) | DRG 871 ==
LOC: ERS 13:21 → ERHOLD 15:53 → CCU 17:50 → IMCU/EMU 11-02 08:15 → 2SW 11-04 20:39
PROVIDERS: ADMIT Family Medicine; ATTEND Internal Medicine
PROC: 8E0ZXY6 Isolation (ICD-10-PCS; 2021-10-27)
PROC: 5A1935Z Respiratory Ventilation, Less than 24 Consecutive Hours (ICD-10-PCS; 2021-10-27)
PROC: 5A09357 Assistance with Respiratory Ventilation, Less than 24 Consecutive Hours, Continuous Positive Airway Pressure (ICD-10-PCS; 2021-10-27)
PROC: XW0DXM6 Introduction of Baricitinib into Mouth and Pharynx, External Approach, New Technology Group 6 (ICD-10-PCS; principal; 2021-10-28)
DX: A40.3 Sepsis due to Streptococcus pneumoniae (principal); U07.1 COVID-19; J12.82 Pneumonia due to coronavirus disease 2019; J96.01 Acute respiratory failure with hypoxia; J13 Pneumonia due to Streptococcus pneumoniae; R65.20 Severe sepsis without septic shock; N17.9 Acute kidney failure, unspecified; E87.2 Acidosis; E87.1 Hypo-osmolality and hyponatremia; I48.0 Paroxysmal atrial fibrillation; E66.9 Obesity, unspecified; N18.30 Chronic kidney disease, stage 3 unspecified; R00.0 Tachycardia, unspecified; E87.6 Hypokalemia; R19.7 Diarrhea, unspecified; Z68.35 Body mass index [BMI] 35.0-35.9, adult; Z88.0 Allergy status to penicillin; Z90.49 Acquired absence of other specified parts of digestive tract; Z90.710 Acquired absence of both cervix and uterus; Z98.890 Other specified postprocedural states
CPT/HCPCS: 0240U; 36415; 36600; 71045; 76770; 80048; 80053; 80202; 82306; 82553; 82805; 83605; 83690; 83735; 83880; 84145; 84443; 84484; 85025; 85060; 85379; 86140; 87040; 87077; 87149; 87186; 87324; 87449; 93005; 93010; 93306; 96365; 96368; J0282; J0456; J0696; J1100; J1644; J1650; J2543; J3370; J3475; J3490; J7050; J7070; J7120; S0028; U0002